=== PATIENT | female | born 2005 | race Caucasian/White ===

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

== ENCOUNTER 2024-07-18 16:36 | Emergency (ER) | payer BC ==
[~2024-07-18] VITALS: Ht 170.2 cm; Wt 86.7 kg
[~2024-07-18 16:36] MED LIST: ALBU8.5H; HYDR-3713 PO; LARI1TAB3; ONDA-282 PO
[2024-07-18 17:10] LABS: BASO # 0.1 10^3/uL (0.0-0.2); BASO % 0.9 % (0.0-1.0); EOS # 0.1 10^3/uL (0.0-0.5); EOS % 0.9 % (0.0-3.0); HEMOGLOBIN 14.9 g/dl (12.0-15.5); LYMPH # 3.3 10^3/uL (1.5-5.0); LYMPH % 42.3 % (24.0-44.0); MEAN CORPUSCULAR HEMOGLOBIN 31.1 pg (27.0-33.0); MEAN CORPUSCULAR HGB CONC 35.5 g/dl (32.0-36.5); MEAN CORPUSCULAR VOLUME 87.7 fl (80.0-96.0); MONO # 0.5 10^3/uL (0.0-0.8); MONO % 5.8 % (2.0-8.0); NEUTROPHILS # 3.9 10^3/uL (1.5-8.5); NEUTROPHILS % 49.8 % (36.0-66.0); PLATELET COUNT, AUTOMATED 339 10^3/uL (150-450); RED BLOOD COUNT 4.79 10^6/uL (4.00-5.40); WHITE BLOOD COUNT 7.9 10^3/uL (4.0-10.0)
[2024-07-18] MEDS: FAMOTIDINE 20MG/2ML VIAL IVP ONE (17:28)
[2024-07-18] MEDS: ONDANSETRON 4MG 2ML VIAL IV ONE (17:28)
[2024-07-18 17:43] LABS: ALBUMIN 4.2 G/DL (3.2-5.2); ALKALINE PHOSPHATASE 48 U/L (35-104); ALT/SGPT 37 U/L (7.0-40); AST/SGOT 34 U/L (<34); BILIRUBIN,DIRECT 0.2 MG/DL (<0.4); BILIRUBIN,TOTAL 1.1 MG/DL (0.3-1.2); LIPASE 34 U/L (12-53); TOTAL PROTEIN 8.2 G/DL (5.7-8.2)
[2024-07-18 17:46] LABS: HCG, SERUM QUALITATIVE NEGATIVE (NEGATIVE)
[2024-07-18 18:11] LABS: BLOOD UREA NITROGEN 8 MG/DL (9-23); CALCIUM LEVEL 9.8 MG/DL (8.5-10.1); CARBON DIOXIDE LEVEL 19 MMOL/L (20-31); CHLORIDE LEVEL 108 MMOL/L (98-107); CREATININE FOR GFR 0.89 MG/DL (0.55-1.30); GLUCOSE, FASTING 95 MG/DL (60-100); POTASSIUM SERUM 4.8 MMOL/L (3.5-5.1); SODIUM LEVEL 138 MMOL/L (136-145)
[2024-07-18] MEDS ORDERED: PEPC1TAB5 PO (18:43)
[2024-07-18] MEDS ORDERED: ONDA-282 PO (18:43)
[2024-07-18 18:47] VITALS: BP 115/71; TEMP 97.9; O2SAT 99
== END 2024-07-18 19:04 | disposition home or self-care (01) ==
LOC: M ED 16:36
DX: A08.4 Viral intestinal infection, unspecified (principal); J45.909 Unspecified asthma, uncomplicated; F17.200 Nicotine dependence, unspecified, uncomplicated; Z79.3 Long term (current) use of hormonal contraceptives; Z79.899 Other long term (current) drug therapy; Z88.0 Allergy status to penicillin
CPT/HCPCS: 80047; 80048; 80076; 81001; 83690; 84703; 85025; 96374; 96375; 99284; J2405; S0028